=== PATIENT | female | born 1975 | race Caucasian/White ===

== ENCOUNTER → 2024-11-12 | Outpatient (CLI) | payer MEDICAID ==
--- NOTE | 2024-11-12 15:29 | RADIOLOGY REPORT ---
Procedure: CT CT SINUS Study Date and Requested Time: 11/12/2024 02:43 P M History: CHRONIC MAXILLARY SINUSITIS Comparison: None Dose: CTDI: 54.49 mGy DLP: 606.11 mGycm Technique: Multiplanar images obtained through the face without intravenous contrast. Findings: Complete opacification of the right frontal sinus, and right maxillary sinus with near-complete opaci fication of the ethmoid air cells mucosal thickening of right superior and middle nasal meatus. There is opacification of the right ostiomeatal complex, right frontoethmoidal recess with mucosal thicken ing of right sphenoethmoidal recess. There is medial bowing of the right maxillary sinus wall with qu estionable bony thinning/dehiscence. Otherwise, no erosive bony changes are noted. Minimal mucoperiosteal thickening of the left inferior frontal sinus . Bilateral mastoids are clear. The orbits and globes unremarkable. No evidence of acute traumatic fractures. Streak artifact from d ental amalgam limits evaluation of the adjacent structures. Minimal leftward deviation of the nasal septum with left-sided spurring. Right-sided maxillary molar teeth with dental caries. Impression: Complete opacification of the right wall sinus and right maxillary sinus with partial opacification o f the right ethmoid air cells and right superior and inferior nasal meatus. Medial bowing of the med ial right maxillary sinus wall with questionable bony thinning/dehiscence.
== END | disposition home or self-care (01) ==
LOC: RAD 14:18
PROVIDERS: ATTEND Family Medicine
DX: J32.0 Chronic maxillary sinusitis (principal); J34.2 Deviated nasal septum; J32.2 Chronic ethmoidal sinusitis
CPT/HCPCS: 70486